=== PATIENT | female | born 1995 | race Asian ===

== ENCOUNTER 2025-09-16 07:08 | Inpatient (IN) | payer BC, MEDICAID ==
[2025-09-16 07:27] VITALS: BMI 35.9
[2025-09-16] MEDS ORDERED: hydrALAZINE 20 MG/ML VIAL SLOW IVP PRN ×3 (08:49→18:03)
[2025-09-16] MEDS ORDERED: Acetaminophen 500 MG TAB PO PRN (10:03)
[2025-09-16] MEDS ORDERED: Tranexamic Acid 1,000 MG/10 ML VIAL IVP PRN (10:03)
[2025-09-16] MEDS ORDERED: Ibuprofen 800 MG TAB PO PRN (10:03)
[2025-09-16] MEDS ORDERED: Penicillin G Potassium 5 MILL.UNITS VIAL ONE (10:03)
[2025-09-16] MEDS ORDERED: Carboprost 250 MCG/ML AMP IM PRN (10:03)
[2025-09-16] MEDS ORDERED: Diphenoxylate HCl/Atropine Tablet PO PRN ×2 (10:03)
[2025-09-16] MEDS ORDERED: Lidocaine 1% (PF) 30 ML VIAL SC PRN (10:03)
[2025-09-16] MEDS ORDERED: Ondansetron PF 4 MG/2 ML Vial IVP PRN ×2 (10:03→11:10)
[2025-09-16] MEDS ORDERED: Methylergonovine 0.2 MG/ML VIAL IM PRN (10:03)
[2025-09-16] MEDS: Penicillin G Potassium 5 MILL.UNITS in Sodium Chloride 0.9% 100 ML IVPB SCH (10:13)
[2025-09-16] MEDS ORDERED: Oxytocin 30 units/NS 500 ML 500 ML IV SCH (10:15)
[2025-09-16 10:30] LABS: Hematocrit 37.4 % (34.9-44.5); Hemoglobin 12.4 g/dL (12.0-15.5); Mean Corpuscular Hemoglobin 28.6 pg (27.0-33.0); Mean Corpuscular Volume 86.4 fL (81.6-98.3); Platelet Count 245 10x3/uL (150-450); Red Blood Cell (RBC) Count 4.33 10x6/uL (3.90-5.03); White Blood Cell (WBC) Count 11.45 10x3/uL (3.5-10.5)
[2025-09-16] MEDS ORDERED: fentaNYL/Ropivacaine Epidural 100 ML ONE (10:31)
[2025-09-16 11:09] LABS: Syphilis Antibody Index 0.09 S/CO (<1.00 Non-Reactive)
[2025-09-16] MEDS ORDERED: diphenhydrAMINE 50 MG/ML VIAL IVP PRN (11:10)
[2025-09-16 11:11] LABS: Hep B Surf Ag - L&D Non-Reactive S/CO (NonReactive)
[2025-09-16] MEDS: fentaNYL 2 mcg/Ropivacaine 0.2% Epidural 100 ML CADD EPIDURAL SCH (11:11)
[2025-09-16] MEDS ORDERED: Communication Order-Pharmacy FS SCH (11:15)
[2025-09-16] MEDS: Oxytocin 30 units/NS 500 ML 500 ML IV SCH (13:04)
[2025-09-16] MEDS: Penicillin G 2.5 MILL.units 2.5 MILL.UNITS in Premix 1 BAG IVPB SCH (14:27)
[2025-09-16] MEDS ORDERED: Lanolin Ointment 7 GM TUBE TOP PRN (18:03)
[2025-09-16] MEDS ORDERED: Bisacodyl 10 MG SUPP PR PRN (18:03)
[2025-09-16] MEDS ORDERED: Benzocaine-Menthol 82.5 ML CAN TOP PRN (18:03)
[2025-09-16] MEDS ORDERED: Milk Of Magnesia 30 ML UDCUP PO PRN (18:03)
[2025-09-16] MEDS: Ibuprofen 800 MG TAB PO SCH (20:24)
[2025-09-16] MEDS: Acetaminophen 325 MG TAB PO PRN (22:53)
[2025-09-17] MEDS: Cyclobenzaprine 10 MG TAB PO SCH (03:08)
[2025-09-17] MEDS: Ferrous Sulfate 325 MG TAB PO SCH (09:31)
[2025-09-17] MEDS ORDERED: Transdermal Patch Removal TOP PRN (14:30)
[2025-09-17] MEDS: Cyclobenzaprine 10 MG TAB PO PRN (14:42)
[2025-09-17] MEDS ORDERED: Transdermal Patch Removal TOP SCH (21:00)
[2025-09-17 21:26] VITALS: BP 117/66; TEMP 98.3
== END 2025-09-17 20:30 | disposition home or self-care (01) | DRG 807 ==
LOC: CSHLD/OP 07:08 → CSHLD 10:23 → CSHPED 20:15
PROVIDERS: ADMIT Family Medicine; ATTEND Family Medicine
DX: O99.214 Obesity complicating childbirth (principal); Z37.0 Single live birth; Z3A.40 40 weeks gestation of pregnancy; O99.824 Streptococcus B carrier state complicating childbirth; O99.02 Anemia complicating childbirth; O69.81X0 Labor and delivery complicated by cord around neck, without compression, not applicable or unspecified; O71.82 Other specified trauma to perineum and vulva
CPT/HCPCS: 36415; 51702; 85027; 86780; 86850; 86900; 86901; 87340; 99285; J2540; J2590